=== PATIENT | female | born 1945 ===

== ENCOUNTER 2024-03-23 05:34 | Day surgery (SDC) | payer OTHER ==
[2024-03-19 08:26] LABS: HEMATOCRIT 34.8 % (36.0-45.00); HEMOGLOBIN 11.5 g/dL (12.0-15.00); MEAN CELL VOLUME 89.7 fL (80.00-100.00); MEAN CORPUSCULAR HEMOGLOBIN 29.7 pg (27.00-32.0); MEAN CORPUSCULAR HGB CONC 33.1 g/dl (32.0-36.0); PLATELET COUNT 188 K/uL (150-450); RED BLOOD COUNT 3.88 M/uL (4.00-6.00); RED CELL DISTRIBUTION WIDTH 14.9 % (11.5-14.5)
[2024-03-19 08:42] LABS: PH,URINE 5.5 (5.0-8.0); URINE APPEARANCE Clear; URINE BILIRRUBIN Negative (NEGATIVE); URINE BLOOD Negative; URINE COLOR Yellow; URINE GLUCOSE Negative (NEGATIVE); URINE KETONE Negative (NEGATIVE); URINE LEUKOCYTE Negative; URINE NITRATE Negative; URINE PROTEIN Negative (NEGATIVE); URINE UROBILINOGEN 0.2 E.U./dl
[2024-03-19 08:46] LABS: URINE EPITHELIAL CELLS 9.5 uL (0.0-38.8); URINE RBC 13.5 uL (0.0-20.8); URINE WBC 4.6 uL (0.0-23.2)
[2024-03-19 08:56] LABS: INR 0.97; PARTIAL THROMBOPLASTIN TIME 25.7 SECONDS (22.0-34.0); PROTHROMBIN TIME 10.6 SECONDS (9.0-11.5)
[2024-03-19 09:01] LABS: URINE BACTERIA 3.7 uL (0.0-1933)
[2024-03-19 09:28] LABS: BILIRUBIN TOTAL 0.41 mg/dL (0.3-1.2); CALCIUM 10.1 mg/dL (8.5-10.1); CREATININE SERUM 1.23 mg/dL (0.55-1.02); GFR 42.34; POTASSIUM 5.54 mEq/L (3.5-5.1)
[~2024-03-23 05:34] MED LIST: GLIMEPIRIDE4 MG; INDERAL LA80 MG; KLONOPIN; NEURONTIN300 MG; NORVASC5 MG; PEPCID AC20 MG; PLAVIX75 MG; PROTONIX40 MG; SINGULAIR10 MG; SYNTHROID75 MCG; ZOCOR40 MG; ZYRTEC10 MG; [UNRECOGNIZED DRUG - OTHER]
[2024-03-23] MEDS ORDERED: CEFAZOLIN SODIUM 1,000 MG VIAL ONE (14:11)
[2024-03-23] MEDS ORDERED: BUPIVACAINE HCL/MPF 0.5% 30ML VIAL ONE (15:46)
[2024-03-23] MEDS ORDERED: SUGAMMADEX SODIUM 200 MG/2 ML VIAL IV ONE ×2 (17:00→17:15)
[2024-03-23] MEDS ORDERED: MORPHINE SULFATE 4 MG/ML VIAL IV ONE (17:55)
[2024-03-23] MEDS ORDERED: ONDANSETRON HCL 2 MG/ML VIAL ONE (18:18)
== END 2024-03-23 19:00 | disposition home or self-care (01) ==
LOC: CIR.AMB 05:34
PROVIDERS: ATTEND Orthopaedic Surgery Hand Surgery
DX: S67.192A Crushing injury of right middle finger, initial encounter (principal)